=== PATIENT | male | born 1950 | race Caucasian/White ===

== ENCOUNTER 2017-03-08 18:56 | Emergency (ER) | payer BC ==
[2017-03-08 19:13] VITALS: BP 121/72
[2017-03-08] MEDS ORDERED: Fluorescein Sodium TOPICAL* 1 MG TEST ONE (19:16)
[2017-03-08] MEDS ORDERED: BSS OPTH.SOL* BTL ONE (19:17)
[2017-03-08] MEDS ORDERED: Tetracaine 0.5% OPTH.SOL 4 ML* 1 DROP BTL ONE (19:17)
--- NOTE | 2017-03-08 19:27 | UC ---
Eye Complaint HPI - HPI Summary HPI Summary: Dripped wood glue in his right eye when he was gluing a cabinet. He flushed the eye immediately and when he returned home, he washed it in the shower. He states that his vision seems more blurry but denies any pain or irritation. - History of Current Complaint Chief Complaint: Edmar Stated Complaint: RIGHT EYE COMPLAINT (WOOD GLUE) Time Seen by Provider: 03/08/17 19:10 Hx Obtained From: Patient Onset/Duration: Sudden Onset Severity Initially: Moderate Severity Currently: Mild Location of Injury: Other - Right eye Aggravating Factor(s): Nothing Alleviating Factor(s): Eye Drops Associated Signs And Symptoms: Positive: Drainage (Clear), Vision Impairment Right. Negative: Photophobia - Allergies/Home Medications Allergies/Adverse Reactions: Allergies Allergy/AdvReac Type Severity Reaction Status Date / Time No Known Allergies Allergy Verified 03/08/17 19:03 Home Medications: Home Medications Bp Med,? Name 40 mg PO DAILY 03/08/17 [History] Lovastatin [Altoprev] 40 mg PO DAILY 03/08/17 [History Confirmed 03/08/17] PMH/Surg Hx/FS Hx/Imm Hx Previously Healthy: Yes Cardiovascular History Of: Reports: Hypertension - Surgical History Surgical History: None - Family History Known Family History: Positive: Hypertension - Social History Occupation: Employed Full-time Lives: With Family Alcohol Use: Rare Substance Use Type: None Smoking Status (MU): Never Smoked Tobacco - Immunization History Most Recent Tetanus Shot: WITHIN 10 YEARS Review of Systems Constitutional: Negative Skin: Negative Eyes: Blurred Vision - Right eye, Drainage, Eye Redness ENT: Negative Respiratory: Negative Cardiovascular: Negative Gastrointestinal: Negative Genitourinary: Negative Motor: Negative Neurovascular: Negative Musculoskeletal: Negative Neurological: Negative Psychological: Negative All Other Systems Reviewed And Are Negative: Yes Physical Exam Triage Information Reviewed: Yes Appearance: Well-Appearing, No Pain Distress, Well-Nourished Vital Signs: Initial Vital Signs Temp 98.4 F 03/08/17 19:05 Pulse 98 03/08/17 19:05 Resp 18 03/08/17 19:05 BP 121/72 03/08/17 19:05 Pulse Ox 98 03/08/17 19:05 Vital Signs Reviewed: Yes Eye Exam: Other Eyes: Positive: Conjunctiva Inflamed - Right eye, Discharge - Clear, Other: - Flourescein dye administered and exam showed no foreign body or acute injury to the eye. Cornea appears cloudy. ENT Exam: Normal Neck exam: Normal Neck: Positive: Supple, Nontender Respiratory Exam: Normal Respiratory: Positive: Chest non-tender, Lungs clear, Normal breath sounds Cardiovascular Exam: Normal Cardiovascular: Positive: RRR, No Murmur Musculoskeletal Exam: Normal Musculoskeletal: Positive: Strength Intact, ROM Intact Neurological Exam: Normal Neurological: Positive: Alert, Muscle Tone Normal Psychological Exam: Normal Psychological: Positive: Normal Response To Family Skin Exam: Normal Eye Complaint Course/Dx - Course Course Of Treatment: This is most likely a chemical conjunctivitis following an exposure to wood glue in the patient's right eye. Poison control states that the eye should just be flushed. Since the patient has already adequately flushed his eye, and the flourescein dye test shows no foreign body, we encouraged him to use lubricating eye drops to help with irritation. He can also use cold compresses for swelling and discomfort. - Differential Dx/Diagnosis Differential Diagnosis/HQI/PQRI: Conjunctivitis, Corneal Abrasion, Foreign Body Provider Diagnoses: Chemical conjunctivitis Discharge - Discharge Plan Condition: Stable Disposition: HOME Patient Education Materials: Conjunctivitis (ED) Print Language: CHINESE Referrals: Sumi Hamilton PA [Primary Care Provider] - Additional Instructions: This is most likely a chemical conjunctivitis. We would like you to use an over- the-counter lubricating eye drop for irritation. You may also use cold compresses for any swelling. Please return or follow-up with your primary care provider for any worsening symptoms.
== END 2017-03-08 19:40 | disposition home or self-care (01) ==
LOC: UCCORT 18:56
DX: H10.211 Acute toxic conjunctivitis, right eye (principal); I10 Essential (primary) hypertension
CPT/HCPCS: 99201; A9270-GY; G0463